=== PATIENT | male | born 1995 | race Caucasian/White ===

== ENCOUNTER 2020-07-18 22:19 | Emergency (ER) | payer BC, MEDICAID, OTHER ==
[~2020-07-18] VITALS: Ht 175.3 cm; Wt 72.7 kg
[~2020-07-18 22:19] MED LIST: ACET1TAB12 PO; CLIN60GE TP
[2020-07-18 22:22] VITALS: BP 118/79
[2020-07-18] MEDS ORDERED: ketorolac tromethamine 15mg/ml inj. IM ONE (22:40)
[2020-07-18] MEDS ORDERED: orphenadrine citrate 60mg/2ml inj. IM ONE (22:40)
[2020-07-18] MEDS ORDERED: METH-360 PO (22:55)
[2020-07-18] MEDS ORDERED: IBUP-1985 PO (22:55)
[2020-07-18] MEDS ORDERED: diazepam 5mg tablet PO ONE (23:10)
== END 2020-07-18 23:18 | disposition home or self-care (01) ==
LOC: ER 22:20
DX: S43.101A Unspecified dislocation of right acromioclavicular joint, initial encounter (principal); S46.001A Unspecified injury of muscle(s) and tendon(s) of the rotator cuff of right shoulder, initial encounter; F12.90 Cannabis use, unspecified, uncomplicated; Z72.89 Other problems related to lifestyle; Z79.899 Other long term (current) drug therapy; W19.XXXA Unspecified fall, initial encounter; Y93.89 Activity, other specified; Y92.89 Other specified places as the place of occurrence of the external cause; Y99.8 Other external cause status
CPT/HCPCS: 73030; 96372; 99284; J1885

== ENCOUNTER 2021-11-15 02:30 | Emergency (ER) | payer SELFPAY ==
[~2021-11-15] VITALS: Ht 172.7 cm; Wt 158.0 kg
[~2021-11-15 02:30] MED LIST changes: +IBUP-1985 PO; +METH-360 PO
[2021-11-15 02:32] VITALS: BP 123/82
[2021-11-15] MEDS ORDERED: normal saline 1000ML IV soln IVB ONE ×2 (03:00→03:25)
[2021-11-15 03:58] LABS: BASOPHILS % (AUTO) 0.2 % (0-1); EOSINOPHILS % (AUTO) 0 % (0-6); HEMATOCRIT 43.6 % (42.0-52.0); HEMOGLOBIN 14.9 g/dl (14.0-17.9); LYMPHOCYTES # (AUTO) 1.3 X10'3 (1.1-4.8); LYMPHOCYTES % (AUTO) 9.8 % (21-51); MEAN CORPUSCULAR HEMOGLOBIN 31.5 PG (27.0-31.0); MEAN CORPUSCULAR HGB CONC 34.1 g/dL (33.0-36.5); MEAN CORPUSCULAR VOLUME 92.4 FL (78-98); MEAN PLATELET VOLUME 8.3 FL (7.4-10.4); MONOCYTES # (AUTO) 0.6 X10'3 (0-0.9); MONOCYTES % (AUTO) 4.9 % (2-12); NEUTROPHILS # (AUTO) 11.1 X10'3 (1.8-7.7); NEUTROPHILS % (AUTO) 85.1 % (42-75); PLATELET COUNT 233 X10'3 (140-440); RED BLOOD COUNT 4.72 X10'6 (4.70-6.10); RED CELL DISTRIBUTION WIDTH 13.1 % (11.5-14.5)
[2021-11-15 04:07] LABS: ALANINE AMINOTRANSFERASE 56 U/L (12-78); ALBUMIN 4.1 G/DL (3.4-5.0); ALBUMIN/GLOBULIN RATIO 1.3 (1.1-1.5); ALKALINE PHOSPHATASE 57 IU/L (46-116); ANION GAP 10 (8-16); ASPARTATE AMINO TRANSFERASE 36 U/L (10-37); BILIRUBIN,TOTAL 0.3 MG/DL (0.1-1.0); BLOOD UREA NITROGEN 8 MG/DL (7-18); BUN/CREATININE RATIO 7.9 (5.4-32.0); CALCIUM 8.5 MG/DL (8.5-10.1); CHLORIDE 113 MMOL/L (99-107); CREATININE 1.01 MG/DL (0.60-1.10); ETHANOL 0.205 GM/DL (0.0-0.010); GLUCOSE 108 MG/DL (70-104); POTASSIUM 3.8 MMOL/L (3.5-5.1); SODIUM 148 MMOL/L (135-145); TOTAL CARBON DIOXIDE 24.9 MMOL/L (24-32); TOTAL PROTEIN 7.2 G/DL (6.4-8.2); eGFR 90 ML/MIN
== END 2021-11-15 05:11 ==
LOC: ER 02:30
DX: F10.929 Alcohol use, unspecified with intoxication, unspecified (principal); F12.90 Cannabis use, unspecified, uncomplicated; F17.200 Nicotine dependence, unspecified, uncomplicated; Y90.9 Presence of alcohol in blood, level not specified
CPT/HCPCS: 36415; 80053; 80320; 85025; 99283; J7030

== ENCOUNTER 2023-01-24 02:01 | Emergency (ER) | payer MEDICAID ==
[~2023-01-24] VITALS: Ht 177.8 cm; Wt 81.8 kg
[2023-01-24] MEDS ORDERED: AMOX-580 PO (02:19)
[2023-01-24 02:24] VITALS: BP 171/96
--- NOTE | 2023-01-24 02:47 | NUR ---
WOUND CARE PROVIDED TO BILATERAL LOWER EXTREMITIES. ASSISTED DR BLUE WITH IRRIGATION OF THE WOUNDS.
== END 2023-01-24 03:13 ==
LOC: ER 02:02
DX: S81.811A Laceration without foreign body, right lower leg, initial encounter (principal); F17.210 Nicotine dependence, cigarettes, uncomplicated; F12.90 Cannabis use, unspecified, uncomplicated; Z72.89 Other problems related to lifestyle; Z79.899 Other long term (current) drug therapy; W54.0XXA Bitten by dog, initial encounter; Y93.89 Activity, other specified; Y92.89 Other specified places as the place of occurrence of the external cause; Y99.8 Other external cause status
CPT/HCPCS: 12004; 99283

== ENCOUNTER 2023-02-02 15:34 | Emergency (ER) | payer BC, MEDICAID ==
[~2023-02-02] VITALS: Ht 175.3 cm; Wt 81.2 kg
[~2023-02-02 15:34] MED LIST changes: +AMOX-580 PO
[2023-02-02 15:51] VITALS: BP 132/79
[2023-02-02] MEDS ORDERED: AMOX-117 PO (16:04)
== END 2023-02-02 16:09 | disposition home or self-care (01) ==
LOC: ER 15:35
DX: S80.11XA Contusion of right lower leg, initial encounter (principal); F12.10 Cannabis abuse, uncomplicated; Z79.899 Other long term (current) drug therapy; W54.0XXA Bitten by dog, initial encounter; Y93.89 Activity, other specified; Y92.89 Other specified places as the place of occurrence of the external cause; Y99.8 Other external cause status
CPT/HCPCS: 99283

== ENCOUNTER 2023-02-05 10:49 | Emergency (ER) | payer BC, MEDICAID ==
[~2023-02-05] VITALS: Ht 175.3 cm; Wt 81.0 kg
[~2023-02-05 10:49] MED LIST changes: +AMOX-117 PO
[2023-02-05 11:00] VITALS: BP 118/70
[2023-02-05] MEDS ORDERED: MUPI22OI30 TOP (11:58)
[2023-02-05] MEDS ORDERED: METR-159 PO (11:58)
== END 2023-02-05 12:16 | disposition home or self-care (01) ==
LOC: ER 10:49
DX: S81.851D Open bite, right lower leg, subsequent encounter (principal); F12.10 Cannabis abuse, uncomplicated; Z79.899 Other long term (current) drug therapy; Z79.1 Long term (current) use of non-steroidal anti-inflammatories (NSAID); W54.0XXD Bitten by dog, subsequent encounter
CPT/HCPCS: 99283; L4360; A6449

== ENCOUNTER 2024-07-30 05:58 | Emergency (ER) | payer BC, MEDICAID ==
[~2024-07-30] VITALS: Ht 172.7 cm; Wt 90.9 kg
[~2024-07-30 05:58] MED LIST changes: -AMOX-117 PO; -AMOX-580 PO
[2024-07-30 06:25] LABS: BILIRUBIN,URINE NEGATIVE (Neg); CLARITY,URINE CLEAR (Clear); COLOR,URINE YELLOW (Yellow); GLUCOSE, URINE NEGATIVE (Neg); KETONES,URINE NEGATIVE (Neg); LEUKOCYTE ESTERASE ,URINE NEGATIVE (Neg); NITRITES, URINE NEGATIVE (Neg); OCCULT BLOOD,URINE SMALL (Neg); PROTEIN,URINE NEGATIVE (Neg); UROBILINOGEN,URINE 0.2 E.U/dL (0.2-1.0)
[2024-07-30 06:27] LABS: UA COLLECTION TYPE CLN CATCH MIDSTREAM
[2024-07-30 06:33] LABS: BACTERIA,URINE FEW /HPF (Neg); HYALINE CASTS 0-3 /LPF (NEGATIVE); MUCUS STRANDS FEW /LPF (Neg); SQUAMOUS EPITHELIAL CELL,UR FEW /LPF (FEW); WBC CLUMPS,URINE FEW /HPF (NEGATIVE)
[2024-07-30] MEDS: ketorolac trometh 15mg/ml vial 15 MG/ML ML IV ONE (08:32)
[2024-07-30] MEDS: normal saline 1000ML IV soln IVB ONE (08:32)
[2024-07-30] MEDS: ondansetron/PF 4mg/2ml inj IV ONE (08:32)
[2024-07-30 08:48] LABS: BASOPHILS % (AUTO) 0.4 % (0-1); EOSINOPHILS # (AUTO) 0.1 X10'3 (0-0.9); HEMATOCRIT 42.5 % (42.0-52.0); HEMOGLOBIN 14.6 g/dl (14.0-17.9); LYMPHOCYTES # (AUTO) 1.8 X10'3 (1.1-4.8); LYMPHOCYTES % (AUTO) 20.3 % (21-51); MEAN CORPUSCULAR HEMOGLOBIN 31.1 PG (27.0-31.0); MEAN CORPUSCULAR HGB CONC 34.3 g/dL (33.0-36.5); MEAN CORPUSCULAR VOLUME 90.7 FL (78-98); MONOCYTES # (AUTO) 0.9 X10'3 (0-0.9); MONOCYTES % (AUTO) 10.1 % (2-12); NEUTROPHILS # (AUTO) 6.2 X10'3 (1.8-7.7); NEUTROPHILS % (AUTO) 68.2 % (42-75); PLATELET COUNT 203 X10'3 (140-440); RED BLOOD COUNT 4.68 X10'6 (4.70-6.10); RED CELL DISTRIBUTION WIDTH 13.8 % (11.5-14.5); WHITE BLOOD COUNT 9.1 X10'3 (4.5-11.0)
[2024-07-30] MEDS ORDERED: CEFU250T95 PO (09:01)
[2024-07-30 09:26] LABS: ALBUMIN 3.9 G/DL (3.4-5.0); ANION GAP 6 (8-16); BLOOD UREA NITROGEN 14 MG/DL (7-18); BUN/CREATININE RATIO 8.9 (10.0-20.0); CALCIUM 8.8 MG/DL (8.5-10.1); CHLORIDE 101 MMOL/L (99-107); CREATININE 1.58 MG/DL (0.60-1.10); GLUCOSE 103 MG/DL (70-104); POTASSIUM 4.1 MMOL/L (3.5-5.1); SODIUM 137 MMOL/L (135-145); TOTAL CARBON DIOXIDE 29.6 MMOL/L (24-32); eCRCL 67 ML/MIN; eGFR 52 ML/MIN
[2024-07-30] MEDS: CefTRIAXone 2gm/D5W 50ml BAG 50 ML IV ONE (09:34)
[2024-07-30] MEDS: morphine 4 MG/ML inj SYRINge IV ONE (09:47)
[2024-07-30 10:14] VITALS: BP 104/73; PULSE 86; RESP 14; TEMP 98.2; O2SAT 98
== END 2024-07-30 10:16 | disposition home or self-care (01) ==
LOC: ER 05:58
DX: Z79.1 Long term (current) use of non-steroidal anti-inflammatories (NSAID) (principal); Z79.2 Long term (current) use of antibiotics; Z79.899 Other long term (current) drug therapy; F12.90 Cannabis use, unspecified, uncomplicated
CPT/HCPCS: 36415; 74176; 80048; 81001; 85025; 87088; 96361; 96365; 96375; 99285; J0696; J1885; J2270; J2405; J7030